=== PATIENT | female | born 1980 | race Caucasian/White ===

== ENCOUNTER 2018-11-29 05:04 | Day surgery (SDC) | payer OTHER ==
[2018-11-25 14:57] VITALS: BMI 43.8
[2018-11-29] MEDS ORDERED: ACETAMINOPHEN 325 MG TABLET (FP) PO PRN (08:11)
[2018-11-29] MEDS ORDERED: IBUPROFEN 400 MG TABLET (FP) PO PRN (08:11)
--- NOTE | 2018-11-29 08:11 | HP ---
History & Physical Update - History History: No Change - Physical Physical: No Change - Assessment Assessment: No Change - Plan Plan: No Change (No change in HP)
--- NOTE | 2018-11-29 11:39 | HP ---
Satellite [facility] - Chief Complaint Chief Complaint: Bleeding vaginally History Source: Patient - Past Medical History Allergies/Adverse Reactions: Allergies Allergy/AdvReac Type Severity Reaction Status Date / Time Sulfa (Sulfonamide Allergy Severe ANAPHYLAXIS Verified 11/29/18 11:06 Antibiotics) ...LMP: 11/18/18 - Current Medications Current Medications: Home Medications Medication Instructions Recorded Albuterol Sulfate Inhaler - 1 puff IH PRN 11/25/18 [Ventolin Hfa Inhaler -] Amoxicillin - [Amoxicillin 500mg 500 mg PO BID 11/25/18 Capsule -] Mometasone Furoate [Asmanex] 220 mcg IH HS 11/25/18 Satellite Physical Exam - Physical Examination Vital Signs: Vital Signs Period Temp Pulse Resp BP Sys/Dick Pulse Ox Last 24 Hr 97.8 F 72 18 130/89 97 General Appearance: Well Nourished, Well Developed ENT: Clear Lung: Clear to auscultation Breasts: Soft, Non-Tender, No masses bilaterally Abdomen: Soft Extremities: No edema Pelvic Exam: Other Uterus (enlarged) Neurological: Intact, Alert, Oriented Satellite Impression/Plan - Impression/Plan Impression: Metromenorrhagia. Fibroids. ovarian cyst Operative Procedure: DC Date to be Performed: 11/29/18
[2018-11-29] MEDS ORDERED: MIDAZOLAM HCL 2 MG/2 ML SINGLE DOSE VIAL ONE (13:05)
[2018-11-29] MEDS ORDERED: DEXAMETHASONE SOD PHOSPHATE 4 MG/1 ML VIAL ONE (13:06)
[2018-11-29] MEDS ORDERED: LIDOCAINE HCL/PF 2% SDV 5ML VIAL ONE (13:06)
[2018-11-29] MEDS ORDERED: oxyCODONE HCL 5 MG TABLET PO PRN ×2 (13:19)
[2018-11-29] MEDS ORDERED: ONDANSETRON 4 MG/2 ML VIAL IVPUSH PRN (13:19)
[2018-11-29] MEDS ORDERED: ROCURONIUM BROMIDE 50 MG/5 ML VIAL ONE (13:27)
[2018-11-29] MEDS ORDERED: LACTATED RINGERS SOLUTION 1,000 ML IV SCH (13:30)
--- NOTE | 2018-11-29 14:00 | OP ---
Operative Note - Note: Operative Date: 11/29/18 Pre-Operative Diagnosis: abnormal Uterine bleeding Operation: Hysteroscopic lysis of adhesions. Suction DC Findings: uterine adhesions Post-Operative Diagnosis: Same as Pre-op Surgeon: Noreen Kebede Anesthesia: General Estimated Blood Loss (mls): 10 Operative Report Dictated: Yes
[2018-11-29 16:08] VITALS: TEMP 98.2
[2018-11-29 17:25] VITALS: BP 127/84; PULSE 67
--- NOTE | 2018-11-30 10:20 | OP ---
DATE OF OPERATION: 11/29/2018 PREOPERATIVE DIAGNOSIS: Abnormal uterine bleeding. OPERATION: Hysteroscopy, suction dilatation and curettage and hysteroscopic lysis of adhesions. POSTOPERATIVE DIAGNOSES: 1. Abnormal uterine bleeding. 2. Uterine adhesions. SURGEON: Noreen Kebede MD ANESTHESIA: General. PROCEDURE: Patient was taken to the operating room, placed in the dorsal lithotomy position, prepped and draped in the usual sterile fashion. Timeout was performed in accordance with hospital regulation. Speculum was placed in the vagina. Anterior lip of the cervix was grasped with a single-tooth tenaculum. Hysteroscopy was performed. Adhesions were noted. Lysis of adhesions was then performed followed by suction D & C with a number 7 curet. All contents were submitted to Pathology. Hemostasis was achieved. All instruments were then removed. Estimated blood loss: 10 mL. NOREEN KEBEDE M.D. KAMAR/[id number]
--- NOTE | 2018-12-01 17:21 | PATH ---
Surgical Pathology Report Patient Name: PANKAJ BLACK [facility]. Rec. #: [id number] /Age/Gender: 1980 (Age: 38) / F Account: [id number] Location: [facility] SURGICAL Taken: 11/29/2018 Received: 11/30/2018 Reported: 12/01/2018 Physicians: Noreen Kebede M.D. Specimen(s) Received ENDOMETRIAL CURETTINGS Clinical History Fibroids Final Diagnosis ENDOMETRIAL CURETTINGS, SUCTION DILATION AND CURETTAGE: FRAGMENTS OF PROLIFERATIVE ENDOMETRIUM AND SCANT BENIGN ENDOCERVICAL TISSUE. Electronically Signed Lizbeth Hernandes M.D. Gross Description Received in formalin labeled "endometrial curettings" are multiple fragments of pink-eddy hemorrhagic tissue measuring 3.5 x 3 x 0.4 cm in aggregate. Entire specimen submitted in one cassette. MLSZ/11/30/2018 sanml/11/30/2018
== END 2018-11-29 17:31 | disposition home or self-care (01) ==
LOC: JASU-SURG 05:04
PROVIDERS: ATTEND Obstetrics & Gynecology
PROC: 0UJD8ZZ Inspection of Uterus and Cervix, Via Natural or Artificial Opening Endoscopic (ICD-10-PCS; 2018-11-29)
PROC: 0UN98ZZ Release Uterus, Via Natural or Artificial Opening Endoscopic (ICD-10-PCS; principal; 2018-11-29 12:00)
PROC: 0UDB7ZX Extraction of Endometrium, Via Natural or Artificial Opening, Diagnostic (ICD-10-PCS; 2018-11-29 12:00)
DX: N93.9 Abnormal uterine and vaginal bleeding, unspecified (principal); N85.6 Intrauterine synechiae
CPT/HCPCS: 36415; 84703; 86850; 86900; 86901; 88305-TC; 94760